=== PATIENT | female | born 1990 | race Caucasian/White ===

== ENCOUNTER → 2018-06-10 | Outpatient (CLI) | payer BC | LOC: SUN.DIA 06-09 08:16 | DX: O24.419 Gestational diabetes mellitus in pregnancy, unspecified control (principal); Z3A.32 32 weeks gestation of pregnancy | CPT/HCPCS: G0108 ==

== ENCOUNTER → 2018-06-18 | Outpatient (CLI) | payer BC | LOC: SUN.DIA 11:18 | DX: O24.419 Gestational diabetes mellitus in pregnancy, unspecified control (principal); Z3A.34 34 weeks gestation of pregnancy | CPT/HCPCS: G0108 ==

== ENCOUNTER → 2018-07-08 | Outpatient (CLI) | payer BC | LOC: SUN.DIA 08:46 | DX: O24.419 Gestational diabetes mellitus in pregnancy, unspecified control (principal); Z3A.36 36 weeks gestation of pregnancy | CPT/HCPCS: G0108 ==

== ENCOUNTER → 2018-07-22 | Outpatient (CLI) | payer BC | LOC: SUN.DIA 10:42 | DX: O24.419 Gestational diabetes mellitus in pregnancy, unspecified control (principal); Z3A.38 38 weeks gestation of pregnancy | CPT/HCPCS: G0108 ==

== ENCOUNTER 2018-10-06 23:44 | Inpatient (IN) | payer BC ==
[~2018-10-06] VITALS: Ht 162.6 cm; Wt 69.7 kg
[~2018-10-06 23:44] MED LIST: IBU600 MG PO
[2018-10-07] VITALS (13 sets, daily range): BP systolic 122–136; BP diastolic 74–94; PULSE 78–128; TEMP 98.2–98.9
[2018-10-07] MEDS ORDERED: ULTRAM 50MG TAB50 MG PO (00:16)
[2018-10-07 00:19] LABS: BASO # 0.1 (0.0-0.2); BASO % 0.4 % (0.0-2.0); EOS # 0.1 (0.0-0.7); EOS % 0.5 % (0-4.0); GRAN # 10.4 (1.4-6.5); GRAN % 78.5 % (42.2-75.2); HEMOGLOBIN 13.3 g/dl (12.5-16.0); LYMPH # 1.9 (1.2-3.4); LYMPH % 14.7 % (20.0-51.0); MEAN CELL VOLUME 87 fl (80.0-100.0); MEAN CORPUSCULAR HEMOGLOBIN 31 pg (27.0-31.0); MEAN CORPUSCULAR HGB CONC 35 g/dl (33.0-37.0); MEAN PLATELET VOLUME 9.7 fl (7.4-10.4); MONO # 0.7 (0.1-0.6); MONO % 5.5 % (1.7-9.3); PLATELET COUNT 349 K/mm3 (130-400); RED BLOOD COUNT 4.35 M/mm3 (4.10-5.30); REDCELL DISTRIBUTION WIDTH-CV 12.3 % (11.5-14.5)
[2018-10-07 00:30] LABS: ALBUMIN 4.4 gm/dL (3.5-5.0); BILIRUBIN,TOTAL 4.4 mg/dL (0.0-1.0); CALCIUM 9.9 mg/dL (8.4-10.2); CREATININE, serum 0.84 mg/dL (0.52-1.25); POTASSIUM 3.6 mmol/L (3.4-5.0); TOTAL PROTEIN 8.1 gm/dL (6.4-8.2)
--- NOTE | 2018-10-07 03:35 | NUR ---
Report received from Ibis GUEVARA
--- NOTE | 2018-10-07 05:00 | NUR ---
Pt resting in bed. C/o pain 10 in RUQ. Abdomen soft. BS +. Lungs clear. VSS. IV fluids infusing to R AC IV.
--- NOTE | 2018-10-07 06:53 | NUR ---
Pt c/o abdominal pain and request PRN pain medication. No other needs noted at this time. at bedside.
--- NOTE | 2018-10-07 07:45 | NUR ---
PATIENT IS RATING HER PAIN AN 8/10 ON A 0-10 SCALE AFTER RECEIVING IV DILAUDID. DR. PAZ CALLED AND NOTIFIED. DR. PAZ GAVE ORDERS TO START LOW DOSE EMPLOYEE BENEFITS ATTORNEY.
--- NOTE | 2018-10-07 08:00 | NUR ---
PATIENT IS A&O. TACHYCARDIA & SHALLOW, TACHYPNIC BREATHING NOTED, OTHERWISE VSS. PATIENT STATES THAT SHE FEELS SHORT OF BREATH. ALL LUNG MISTRY CLEAR UPON AUSCULTATION. BOWEL SOUNDS ACTIVE ALL FOUR QUADRANTS. PATIENT IS NPO. PATIENT STATES THAT SHE HAS NAUSEA, BUT DENIES VOMITING AT THIS TIME. IV FLUIDS INFUSING TO RIGHT AC IV VIA PUMP. CALL LIGHT WITHIN REACH. NO OTHER NEEDS AT THIS TIME.
--- NOTE | 2018-10-07 08:19 | NUR ---
PATIENT STATES THAT SHE FEELS NAUSEOUS. PATIENT GIVEN PRN DOSE OF ZOFRAN.
[2018-10-07 12:07] LABS: HEMATOCRIT 41.1 % (37.0-47.0); HEMOGLOBIN 13.7 g/dl (12.5-16.0); MEAN CELL VOLUME 90 fl (80.0-100.0); MEAN CORPUSCULAR HEMOGLOBIN 30 pg (27.0-31.0); MEAN CORPUSCULAR HGB CONC 33 g/dl (33.0-37.0); MEAN PLATELET VOLUME 9.6 fl (7.4-10.4); PLATELET COUNT 305 K/mm3 (130-400); RED BLOOD COUNT 4.55 M/mm3 (4.10-5.30); REDCELL DISTRIBUTION WIDTH-CV 12.8 % (11.5-14.5)
[2018-10-07 12:21] LABS: ALBUMIN 3.8 gm/dL (3.5-5.0); BILIRUBIN,TOTAL 1.2 mg/dL (0.0-1.0); C-REACTIVE PROTEIN 4.1 mg/dL (0.0-0.9); CALCIUM 8.2 mg/dL (8.4-10.2); CREATININE, serum 0.73 mg/dL (0.52-1.25); POTASSIUM 4.4 mmol/L (3.4-5.0); TOTAL PROTEIN 7.3 gm/dL (6.4-8.2)
--- NOTE | 2018-10-07 13:45 | NUR ---
PATIENT HAD ONE EPISODE OF UNMEASURED GREEN EMESIS.
[2018-10-07 14:10] LABS: COLLECTION METHOD CLEAN CATCH
[2018-10-07 14:20] LABS: MUCOUS Present /lpf; PH 5 (5-8); URINE APPEARANCE Hazy; URINE BACTERIA Rare /hpf; URINE BILIRUBIN Negative (NEGATIVE); URINE BLOOD 1+ (NEGATIVE); URINE COLOR Amber; URINE GLUCOSE Negative (NEGATIVE); URINE KETONE 1+ (NEGATIVE); URINE LEUKOCYTE ESTERASE 3+ (NEGATIVE); URINE NITRATE Negative (NEGATIVE); URINE PROTEIN(semi-quant) 1+ (NEGATIVE); URINE UROBILINOGEN Negative (NEGATIVE)
--- NOTE | 2018-10-07 14:20 | NUR ---
PATIENT BLADDER SCANNED. 1ST SCAN: 756 MLS. 2ND SCAN: 334MLS. SURGICAL BLADDER SCANNER BROKEN. PATIENT BLADDER SCANNED WITH EMERGENCY DEPARTMENT SCANNER. 937 MLS OF URINE PRESENT IN BLADDER. PATIENT ENCOURAGED TO VOID. PATIENT VOIDED [address] PAZ CALLED AND NOTIFIED. DR. PAZ GAVE ORDERS TO INSERT A CARNES CATHETER, PHENERGAN 12.5 MG Q6H PRN, AND 500 ML LACTED RINGER BOLUS.
--- NOTE | 2018-10-07 14:40 | NUR ---
16 [place] CARNES CATHETER PLACED VIA STERILE TECHNIQUE. BALLOON FILLED WITH 10 MLS OF NORMAL SALINE. ELIZABETH CARE PROVIDED. 750 MLS OF CLEAR BRENDA URINE REMOVED FROM BLADDER. PATIENT TOLERATED WELL.
--- NOTE | 2018-10-07 14:55 | NUR ---
PATIENT GIVEN PRN DOSE OF PHENERGAN FOR NAUSEA & VOMITING.
--- NOTE | 2018-10-07 15:30 | NUR ---
PATIENT ARRIVED TO ROOM 323 VIA CART BY EMS. PATIENT SETTELED INTO ROOM. PATIENT A&O. VSS. BOWEL SOUNDS ACTIVE ALL FOUR QUADRANTS. PATIENT DENIES AND COMPLAINTS OF N/V. POSITIVE PEDAL PULSES EQUAL BILATERALLY. CAP REFILL <3 SECONDS. CMS INTACT. SHER HOSE APPLIED TO LLE. SCD'S TO BLE. INT TO RIGHT AC. CALL LIGHT WITHIN REACH. ADMISSION ASSESSMENT COMPLETE. PATIENT DENIES ANY NEEDS AT THIS TIME.
--- NOTE | 2018-10-07 18:30 | NUR ---
PATIENT TAKEN TO PERIOP VIA BED.
--- NOTE | 2018-10-07 19:49 | NUR ---
REPORT GIVEN TO PAOLA NUÑEZ.
--- NOTE | 2018-10-07 20:20 | NUR ---
Patient in bed resting; family at bedside. Sleepy but easy to awaken. Oriented x3. Shift assessment complete. Malhotra to dependent drainage with clear emerita urine present in bag. RN POOL and IV fluids infusing to right AC via pump. States pain 10/10 to abdomen not relieved by story analyst dilaudid. Denies further needs at this time. Will continue to monitor.
--- NOTE | 2018-10-07 20:24 | NUR ---
Contacted Dr. Martínez, patient states that current dose of STREET CAR INSPECTOR pain medication is not helping her pain, rated pain 8/10. Dr. Martínez to look at patients chart and readjust.
[2018-10-08] VITALS (304 sets, daily range): BP systolic 107–126; BP diastolic 71–81; PULSE 126–142; TEMP 98.6–102.5; O2SAT 88–96
--- NOTE | 2018-10-08 00:23 | NUR ---
Contacted Dr. Martínez. Patients heart rate in 140's, O2 sats 82% on Room air. placed patient on 3L via NC and heart rate down to 128. BP stable. Patient denies feeling short of breath or feeling palpitations. Fluid bolus ordered. Chest x-ray ordered. Entered orders TORB. Will continue to monitor.
--- NOTE | 2018-10-08 03:02 | NUR ---
Contacted Dr. Martínez, increased patient to 5L via NC to maintain sats at 95%. HR increased to 140's. Meghan CANCINO consulted for medical management. Orders entered for tele and EKG. TORB
[2018-10-08 03:31] LABS: BASO % 0.2 % (0.0-2.0); GRAN # 12.5 (1.4-6.5); GRAN % 85.6 % (42.2-75.2); HEMATOCRIT 43.9 % (37.0-47.0); HEMOGLOBIN 14.3 g/dl (12.5-16.0); LYMPH # 1.3 (1.2-3.4); LYMPH % 8.5 % (20.0-51.0); MEAN CELL VOLUME 92 fl (80.0-100.0); MEAN CORPUSCULAR HEMOGLOBIN 30 pg (27.0-31.0); MEAN CORPUSCULAR HGB CONC 33 g/dl (33.0-37.0); MEAN PLATELET VOLUME 9.7 fl (7.4-10.4); MONO # 0.8 (0.1-0.6); MONO % 5.4 % (1.7-9.3); PLATELET COUNT 336 K/mm3 (130-400); RED BLOOD COUNT 4.79 M/mm3 (4.10-5.30); REDCELL DISTRIBUTION WIDTH-CV 13.3 % (11.5-14.5)
[2018-10-08 03:45] LABS: BAND 15 % (0-10); HYPOCHROMIA 1+; LYMPHOCYTE 4 % (20.0-51.0); NEUTROPHILS 79 % (42.0-75.2); PLATELET ESTIMATE NORMAL (NORMAL)
[2018-10-08 03:46] LABS: SCHISTOCYTES 1+
[2018-10-08 03:53] LABS: ARTERIAL BLD GAS O2 SATURATION 97.8 % (92-100); ARTERIAL BLD GAS TCO2 CT 25.6; ARTERIAL BLOOD GAS BASE EXCESS -2.7 (-2-2); ARTERIAL BLOOD GAS HCO3 24.1 meq/L (22-26); ARTERIAL BLOOD GAS PCO2 49.2 mmHg (35-45); ARTERIAL BLOOD GAS PO2 114.1 mmHg (80-100); ARTERIAL BLOOD GAS pH 7.31 (7.35-7.45)
--- NOTE | 2018-10-08 04:03 | NUR ---
Report received from Gerda choral director. Stated they were taking patient to CT and then would come to ICU. Will await arrival.
--- NOTE | 2018-10-08 04:10 | NUR ---
Report called to Bismark GUEVARA. Patient to CT by bed then ICU.
[2018-10-08 04:39] LABS: ALBUMIN 3.2 gm/dL (3.5-5.0); CALCIUM 7.2 mg/dL (8.4-10.2); CREATININE, serum 0.89 mg/dL (0.52-1.25); MAGNESIUM 1.5 mg/dL (1.6-2.3); PHOSPHOROUS 3.2 mg/dL (2.5-4.5); POTASSIUM 4.4 mmol/L (3.4-5.0); TOTAL PROTEIN 6.4 gm/dL (6.4-8.2)
--- NOTE | 2018-10-08 04:43 | NUR ---
Patient arrived to ICU accompanied by PAOLA Johnson. Patient able to move from bed to ICU bed with minimal issues. Patient placed on Bipap by RT Marsha. JULITA Christianson outside of room, notified of arrival. Will assume care of patient at this time. *0517: Patient not tolerating Bipap well at this time, taken off by Meghan at this time. RT Marsha notified of removal of bipap and placed back on NC at this time.
--- NOTE | 2018-10-08 04:55 | NUR ---
Patient somnolent, not easily arroused. JULITA Christianson notified at this time, GUEST SERVICE HOST on hold until patient more awake.
[2018-10-08 05:09] LABS: THYROID STIMULATING HORMONE 1.67 uIU/mL (0.465-4.680)
[2018-10-08 05:54] LABS: C-REACTIVE PROTEIN 22.3 mg/dL (0.0-0.9)
[2018-10-08 06:11] LABS: ARTERIAL BLD GAS O2 SATURATION 96.5 % (92-100); ARTERIAL BLD GAS TCO2 CT 25.3; ARTERIAL BLOOD GAS BASE EXCESS -1.8 (-2-2); ARTERIAL BLOOD GAS HCO3 23.9 meq/L (22-26); ARTERIAL BLOOD GAS PCO2 43.9 mmHg (35-45); ARTERIAL BLOOD GAS PO2 90.2 mmHg (80-100); ARTERIAL BLOOD GAS pH 7.35 (7.35-7.45)
[2018-10-08 06:57] LABS: INR 1.5 (0.8-3.0); PROTHROMBIN TIME 17.1 SECONDS (9.7-12.8)
--- NOTE | 2018-10-08 07:00 | NUR ---
Bedside report received from PAOLA Sofia.
--- NOTE | 2018-10-08 07:30 | NUR ---
Assessment complete, patient resting in bed, awakens easily, dilaudid global transportation manager to global transportation manager only infusing, family at bedside. Call light within reach.
--- NOTE | 2018-10-08 08:01 | NUR ---
AIVS here to place picc line.
--- NOTE | 2018-10-08 10:19 | NUR ---
Plan: Transfer to [facility]. SW recieved call from Kia Triage Nurse at [facility] for transfer information. Faxed [employer], [employer], Consult, Prognosis and CT information VIA email secure [email or web address] . Confirmed she recieved information. Donell Harris is PCP spouse . PT denies having a DPOA and declined putting one in place at this time. PT denies having any DME. PCP is Emma Caceres in [facility].
--- NOTE | 2018-10-08 11:48 | NUR ---
Report called to PAOLA Molina at [facility].
--- NOTE | 2018-10-08 11:58 | NUR ---
Waiting on transport to arrive for transfer to [facility].
--- NOTE | 2018-10-08 12:25 | NUR ---
Patient transferred to via [facility], all paperwork and disc sent with patient.
--- NOTE | 2018-10-08 12:33 | NUR ---
[facility] called with ETA update.
== END 2018-10-08 12:30 | disposition short-term general hospital (02) | DRG 871 ==
LOC: COL.ER 23:44 → SURG 10-07 00:14 → ICU 10-08 04:36
PROVIDERS: Emergency Medicine; Nurse Practitioner Family; ADMIT Surgery
PROC: 02HV33Z Insertion of Infusion Device into Superior Vena Cava, Percutaneous Approach (ICD-10-PCS; principal; 2018-10-08)
DX: A41.9 Sepsis, unspecified organism (principal); K85.12 Biliary acute pancreatitis with infected necrosis; J96.01 Acute respiratory failure with hypoxia; J96.02 Acute respiratory failure with hypercapnia; J90 Pleural effusion, not elsewhere classified; R65.20 Severe sepsis without septic shock; K80.20 Calculus of gallbladder without cholecystitis without obstruction
CPT/HCPCS: 99223; A4314; C1751; C1894; J1170; J1650; J2185; J2405; J2550; J2765; J3475; J7030; J7120; Q9967

== ENCOUNTER → 2023-02-10 | Outpatient (CLI) | payer BC ==
[~2023-02-10] MED LIST changes: +ULTRAM 50MG TAB50 MG PO
== END ==
LOC: DIA.ED 09:28
DX: O24.419 Gestational diabetes mellitus in pregnancy, unspecified control (principal)
CPT/HCPCS: G0108

== ENCOUNTER 2023-06-24 06:05 | Inpatient (IN) | payer BC ==
[2023-06-24] VITALS (44 sets, daily range): BP systolic 86–149; BP diastolic 50–82; PULSE 57–116; TEMP 97.8–98
[~2023-06-24] VITALS: Ht 165.1 cm; Wt 81.9 kg
--- NOTE | 2023-06-24 06:15 | NUR ---
0615PT ARRIVES ON UNIT. PT CHANGES INTO CLEAN GOWN. AND COMFORTABLE IN BED. 0620THIS RN AT BEDSIDE. PT DENIES LOF AND DENIES VAGINAL BLEEDING. REPORTS POSITIVE FM. DENIES FEELING ANY CTX. EFM AND TOCO PLACED. VITAL SIGNS STABLE. EFM TRACING CAT I. 0625IV STARTED AND LABS DRAWN. PT COMFORTABLE WITH POC.
[2023-06-24] MEDS ORDERED: PRENATAL TABLET PO (06:52)
[2023-06-24 07:08] LABS: BASO % 0.3 % (0.0-2.0); EOS # 0.1 K/mm3 (0.0-0.7); EOS % 0.8 % (0.0-4.0); HEMOGLOBIN 10.1 g/dl (12.5-16.0); LYMPH % 31.2 % (20.0-51.0); MEAN CELL VOLUME 86 fl (80.0-100.0); MEAN CORPUSCULAR HEMOGLOBIN 28 pg (27-31); MEAN CORPUSCULAR HGB CONC 33 g/dl (33.0-37.0); MEAN PLATELET VOLUME 10.8 fl (7.4-10.4); MONO # 0.4 K/mm3 (0.1-0.6); MONO % 6.4 % (1.7-9.3); PLATELET COUNT 205 K/mm3 (130-400); RED BLOOD COUNT 3.61 M/mm3 (4.10-5.30); REDCELL DISTRIBUTION WIDTH-CV 13.8 % (11.5-14.5)
[2023-06-24 07:14] LABS: HEMATOCRIT 30.9 % (37.0-47.0)
--- NOTE | 2023-06-24 07:29 | NUR ---
SVE AT THIS TIME BY THIS RN. 3-/-2. PT TOLERATED WELL. VITAL SIGNS STABLE. EFM TRACING CAT I.
--- NOTE | 2023-06-24 11:32 | NUR ---
1125DR GOODPASTURE ON UNIT. 1130DR GOODPASTURE AT BEDSIDE. DISCUSSES POC WITH PT. PT AGREEABLE. 1132DR GOODPASTURE SVE AT THIS TIME. /-2. AROM AT THIS TIME. MODERATE AMOUNT OF CLEAR FLUID NOTED. PT TOLERATED WELL. VITAL SIGNS STABLE. EFM TRACING CAT I.
--- NOTE | 2023-06-24 12:04 | NUR ---
1135DUANE GUIDANCE SERVICES COORDINATOR NOTIFIED OF PT REQUEST OF EPIDURAL. LR BOLUS STARTED. 1150DUANE ON UNIT. PT UP TO SITTING ON SIDE OF BED. PULSE OX PLACED. VITAL SIGNS STABLE. EFM TRACING CAT I. 1200 EMILIA AT BEDSIDE. DISCUSSED POC WITH PT. PT AGREEABLE. 1204SINGLE SHOT ADMINSTERED PER EMILIA GUIDANCE SERVICES COORDINATOR. VITAL SIGNS STABLE. EFM TRACING CAT I. PT RETURNED TO BED. POSITIONED WEDGED LEFT.
--- NOTE | 2023-06-24 13:36 | NUR ---
1336FOLEY PLACED AT THIS TIME BY THIS RN. URINE RETURN NOTED. SVE AT THIS TIME. 5-6/80/-1. PT TOLERATED WELL. VITAL SIGNS STABLE. EFM TRACING CAT I.
--- NOTE | 2023-06-24 15:40 | NUR ---
JUAN PABLO RN, CALLED HERSON NIETO, DUE TO PT PAIN AND REPORTS "EPIDURAL IS NOT WORKING." PT SITTING ON SIDE OF BED. PULSE OX IN PLACE. LR BOLUS INFUSING PER PROTOCOL. 1543 HERSON NIETO AT BEDSIDE. REMOVAL OF FIRST EPIDURAL COMPLETE AT THIS TIME PER EMILIA. 1548 SINGLE SHOT ADMINISTERED PER HERSON NIETO. PT TOLERATED WELL. VS STABLE, EFM CAT 1. PT RETURNED TO BED, COMFORTABLE.
--- NOTE | 2023-06-24 16:26 | NUR ---
1615DR AYALA AT BEDSIDE. SVE AT THIS TIME. /+1. CHARGE NURSE AND NSY NURSE NOTIFIED. ROOM AND SUPPLIES SET UP FOR DELIVERY. 1623PT SET UP FOR DELIVERY. PT BEGAN PUSHING AT THIS TIME WITH RN AND DR AYALA AT BEDSIDE. NSY NURSE AT BEDSIDE. 1626SVD OF VIABLE MALE INFANT PER DR AYALA. LOOSE NUCHAL CORD X1 NOTED, REDUCED BY DR AYALA. INFANT PLACED ON MATERNAL ABDOMEN. CARE ASSUMED BY NSY NURSE. 2ND DEGREE LACERATION NOTED PER DR AYALA. 1635REPAIR FINISHED PER DR AYALA. OF PLACENTA PER DR AYALA AT THIS TIME. ROOM PUT BACK TOGETHER. PERICARE PERFORMED. ICE PACK PLACED. PT COMFORTABLE. FUNDUS FIRM AT U. LOCHIA WNL. LOW BLOOD PRESSURE NOTED. PT REPORTS NAUSEA 1640ZOFRAN AND 2 ML EPHEDRINE GIVEN AT THIS TIME. BP WNL.
--- NOTE | 2023-06-24 18:00 | NUR ---
FUNDUS DEVIATED TO RIGHT SIDE WITH FUNDAL RUB, PT BLADDER DRAINED WITH STRAIGHT CATH, 125ML NOTED. FUNDUS FIRM AND MIDLINE AFTER.
--- NOTE | 2023-06-24 19:00 | NUR ---
small bruise noed to L of epidural insertion site. Anesthesia on unit, notified, no new orders.
--- NOTE | 2023-06-24 20:15 | NUR ---
Attempt up to bathroom. Pt briefly stands at bedside. knees wobbly. To bathroom with Lidia Steady, unable to void at this time. To room via Lidia starayne. Transferred to bed. Instructed not to get out of bed without staff assistance. Verbalizes understanding.
[2023-06-25 06:30] VITALS: BP 96/52; PULSE 71; TEMP 97.5
--- NOTE | 2023-06-25 09:55 | NUR ---
Initial visit; Parents thanked Die Try Out Worker for offering congratulations and God's blessings for the of their son. Die Try Out Worker thanked family for choosing [facility].
[2023-06-25 19:30] VITALS: BP 100/62; PULSE 74; TEMP 97.8
[2023-06-26 06:30] VITALS: BP 109/75; PULSE 81; TEMP 97.7
[2023-06-26] MEDS ORDERED: IBU800 M1 PO (08:58)
[2023-06-26 12:15] VITALS: BP 120/74; PULSE 79; TEMP 97.8
--- NOTE | 2023-06-26 12:28 | NUR ---
DISMISSAL INSTRUCTIONS GIVEN TO PT. VERBALIZES UNDERSTANDING. DISMISSED HOME AMBULATORY WITH FAMILY WITHOUT COMPLAINTS.
== END 2023-06-26 12:28 | disposition home or self-care (01) | DRG 805 ==
LOC: LDR 06:05 → OB 06:05 → LDR 06:12 → OB 10:08
PROVIDERS: ADMIT Student in an Organized Health Care Education/Training Program
PROC: 10E0XZZ Delivery of Products of Conception, External Approach (ICD-10-PCS; principal; 2023-06-24)
PROC: 0KQM0ZZ Repair Perineum Muscle, Open Approach (ICD-10-PCS; 2023-06-24)
PROC: 10907ZC Drainage of Amniotic Fluid, Therapeutic from Products of Conception, Via Natural or Artificial Opening (ICD-10-PCS; 2023-06-24)
PROC: 3E033VJ Introduction of Other Hormone into Peripheral Vein, Percutaneous Approach (ICD-10-PCS; 2023-06-24)
DX: O24.425 Gestational diabetes mellitus in childbirth, controlled by oral hypoglycemic drugs (principal); O99.42 Diseases of the circulatory system complicating childbirth; Z37.0 Single live birth; I47.1 Supraventricular tachycardia; O70.1 Second degree perineal laceration during delivery; O99.02 Anemia complicating childbirth; D64.9 Anemia, unspecified; O69.81X0 Labor and delivery complicated by cord around neck, without compression, not applicable or unspecified; Z3A.38 38 weeks gestation of pregnancy; Z79.4 Long term (current) use of insulin; Z23 Encounter for immunization
CPT/HCPCS: J0665; J2401; J2405; J2590; J2795; J7120